=== PATIENT | female | born 1950 | race Caucasian/White ===

== ENCOUNTER → 2016-10-03 | Outpatient (CLI) | payer OTHER | LOC: FIMAGING 15:03 | PROVIDERS: ATTEND Family Medicine | DX: Z12.31 Encounter for screening mammogram for malignant neoplasm of breast (principal) | CPT/HCPCS: G0202 ==

== ENCOUNTER → 2017-02-05 | Outpatient (CLI) | payer OTHER | LOC: FIMAGING 12:52 | PROVIDERS: ATTEND Physician Assistant | DX: M51.26 Other intervertebral disc displacement, lumbar region (principal); M43.16 Spondylolisthesis, lumbar region; M99.73 Connective tissue and disc stenosis of intervertebral foramina of lumbar region; M51.24 Other intervertebral disc displacement, thoracic region; N28.1 Cyst of kidney, acquired ==

== ENCOUNTER → 2018-06-18 | Emergency (ER) | payer OTHER ==
[~2018-06-18] MED LIST: IOHEXOL 300 mgI/ML (OMNIPAQUE) 150 ML BTL IV ONE; KETOROLAC 30 MG/1 ML SDV IVP ONE; NS 1,000 ML IV ONE; TAMSULOSIN HCL 0.4 MG CAP PO ONE
--- NOTE | 2018-06-18 14:37 | EDPHY ---
H & P Stated Complaint: abd pain Time Seen by Provider: 06/18/18 14:36 - Personal History Current Tetanus/Diphtheria Vaccine: Unsure - Medical/Surgical History Hx Asthma: No Hx Chronic Respiratory Disease: No Hx Diabetes: No Hx Cardiac Disease: No Hx Renal Disease: No Hx Cirrhosis: No Hx Alcoholism: No Hx HIV/AIDS: No Hx Splenectomy or Spleen Trauma: No Other PMH: arthritis in right knee and right hip - Social History Smoking Status: Never smoked Constitutional: Initial Vital Signs Temperature (C) 36.4 C 06/18/18 11:40 Heart Rate 65 06/18/18 11:40 Respiratory Rate 16 06/18/18 11:40 Blood Pressure 117/37 L 06/18/18 11:40 O2 Sat (%) 95 06/18/18 11:40 O2 Delivery Mode Room Air Allergies/Adverse Reactions: No Known Allergies Allergy (Unverified 12/10/13 17:04) Home Medications: Medication Instructions Recorded Cyclobenzaprine [Flexeril 10 MG 5 mg PO DAILY PRN 12/13/13 (*)] Herbals/Supplements -Info Only 1 ea PO DAILY 12/13/13 Melatonin [Melatonin 3 MG (*)] 3 mg PO HS 12/13/13 Nature Throid 32.5mg 16.25 mg PO DAILY 12/13/13 Ascorbic Acid [Vitamin C 500 mg 2,000 mg PO DAILY 04/12/14 (*)] Cholecalciferol Vit D3 [Vitamin D3 6,000 units PO DAILY 04/12/14 (*)] [place]-3 Fatty Acids [Fish Oil 1000 1,000 mg PO TID 04/12/14 mg (*)] Vitamin B Complex [B Complex] 1 each PO DAILY 04/12/14 Acetaminophen [Tylenol 325mg (*)] 325 - 650 mg PO Q6 PRN #0 tab 04/29/14 Aspirin EC [Aspirin EC 325 mg (*)] 325 mg PO DAILY #20 tab 04/29/14 HYDROcodone/APAP 10/325 [[place] 1 - 2 tab PO Q6 PRN #60 tab 04/29/14 10/325 (*)] celeCOXIB [Celebrex (*)] 200 mg PO DAILY #20 cap 04/29/14 Hydrocodone/APAP 5/325 [[place] 1 - 2 each PO Q4-6PRN PRN #20 tab 06/18/18 5/325] Tamsulosin HCl [Flomax 0.4 MG (*)] 0.4 mg PO DAILY #10 cap 06/18/18 Medical Decision Making - Diagnostics Imaging Results: Imaging Impressions Abdomen CT 06/18/18 14:51 Impression: 1. 3.7 mm calculus in the distal left ureter with mild left hydroureter and hydronephrosis. 2. Mildly complex exophytic cyst midpole right kidney with slight increase in size from 2014. 3. Other chronic findings as above. Results called and discussed with Vito Lechuga MD, on 06/18/2018, 15:51. Imaging: Discussed imaging studies w/ call center consultant Radiologist, I viewed and interpreted images myself ED Course/Re-evaluation: CHIEF COMPLAINT: Left lower quadrant pain HISTORY OF PRESENT ILLNESS: 68-year-old female who woke up this morning with left lower quadrant pain. She has some nausea without vomiting. She denies any significant radiation of the pain to her flank but she says it does radiate around her hip area. She feels like it starts just left of her umbilicus. She has never had pain like this before. She has no history of kidney stones. She has no significant medical problems except for recent concussion recently. REVIEW OF SYSTEMS: A comprehensive 10 system review of systems is otherwise negative aside from elements mentioned in the history of present illness and medical decision making. PHYSICAL EXAM: HR, BP, O2 Sat, RR. Temp noted General Appearance: Alert, well hydrated, appropriate, and non-toxic appearing. Head: Atraumatic without scalp tenderness or obvious injury Eyes: Pupils equal, round, reactive to light and accommodation, EOMI, no trauma , no injection. Ears: Clear bilaterally, no perforation, normal landmarks Nose: Atraumatic, no rhinorrhea, clear. Throat: There is no erythema or exudates, no lesions, normal tonsils, mucus membranes moist. Neck: Supple, 2+ carotid upstroke, nontender, no lymphadenopathy. Respiratory: No retractions, no distress, no wheezes, and no accessory muscle use. Lungs are clear to auscultation bilaterally. Cardiovascular: Regular rate and rhythm, no murmurs, rubs, or gallops. Bilateral carotid, radial, dorsalis pedis, and posterior tibial pulses intact. Good capillary refill all extremities. Gastrointestinal: Abdomen is soft, tenderness in left lower quadrant, non- distended, no masses, no rebound, no guarding, no peritoneal signs. Musculoskeletal: Normal active ROM of all extremities, atraumatic. Neurological: Alert, appropriate, and interactive. The patient has normal DTRs and non-focal cranial nerves, motor, sensory, and cerebellar exam. Skin: No rashes, good turgor, no nodules on palpation. Past medical history: Recent concussion Past surgical history: Noncontributory Family history: Noncontributory Social history: , retired, does not abuse tobacco drugs or alcohol DIAGNOSTICS/PROCEDURES/CRITICAL CARE TIME: Study: CT scan of the abdomen and pelvis with IV contrast Indication: Left lower quadrant abdominal pain Results: CT scan of the abdomen and pelvis was obtained. The results of the study are 4mmg stone on the Left. The study was read by the radiologist, Dr. Pennington. I viewed the images myself on the PACS system. DIFFERENTIAL DIAGNOSIS: The differential diagnosis for the patient's abdominal pain included but was not limited to ovarian cyst, pelvic inflammatory disease, ovarian torsion, urinary tract infection, ectopic , cholecystitis, and appendicitis. MEDICAL DECISION MAKING: This patient has reproducible left lower quadrant pain without peritoneal signs. She is not systemically ill. While this could certainly be a kidney stone I am also concerned about sigmoid diverticulitis. She does not know if she has diverticulum. She has never had history of kidney stone. Laboratory studies urinalysis and CT scan are pending. Urinalysis shows blood possibly consistent with kidney stone. 1550: I spoke with Dr. Pennington, radiologist, regarding this patient. She has a left-sided kidney stone and will need to follow up with a urologist. 1610: Reassessed patient and discussed laboratory and imaging findings. I have prescribed her Flomax (her first dose was given prior to discharge) and I advised her to follow up with a urologist. Return precautions provided; patient is comfortable with this plan. - Data Points Laboratory Results: Laboratory Results 06/18/18 14:35 06/18/18 14:35 06/18/18 06/18/18 06/18/18 14:56 14:35 14:35 WBC 10.39 10^3/uL H 10^3/uL (3.80-9.50) RBC 5.23 10^6/uL 10^6/uL (4.18-5.33) Hgb 15.6 g/dL g/dL (12.6-16.3) Hct 49.3 % H % (38.0-47.0) MCV 94.3 fL fL (81.5-99.8) MCH 29.8 pg pg (27.9-34.1) MCHC 31.6 g/dL L g/dL (32.4-36.7) RDW 12.8 % % (11.5-15.2) Plt Count 224 10^3/uL 10^3/uL (150-400) MPV 11.0 fL fL (8.7-11.7) Neut % (Auto) 90.4 % H % (39.3-74.2) Lymph % (Auto) 5.4 % L % (15.0-45.0) [place] % (Auto) 3.6 % L % (4.5-13.0) Eos % (Auto) 0.0 % L % (0.6-7.6) Baso % (Auto) 0.2 % L % (0.3-1.7) Nucleat RBC Rel Count 0.0 % % (0.0-0.2) Absolute Neuts (auto) 9.39 10^3/uL H 10^3/uL (1.70-6.50) Absolute Lymphs (auto) 0.56 10^3/uL L 10^3/uL (1.00-3.00) Absolute Monos (auto) 0.37 10^3/uL 10^3/uL (0.30-0.80) Absolute Eos (auto) 0.00 10^3/uL L 10^3/uL (0.03-0.40) Absolute Basos (auto) 0.02 10^3/uL 10^3/uL (0.02-0.10) Absolute Nucleated RBC 0.00 10^3/uL 10^3/uL (0-0.01) Immature Gran % 0.4 % % (0.0-1.1) Immature Gran # 0.04 10^3/uL 10^3/uL (0.00-0.10) RBC/WBC/PLT Morphology TNP Platelet Estimate TNP Sodium 139 mEq/L mEq/L (135-145) Potassium 4.1 mEq/L mEq/L (3.5-5.2) Chloride 104 mEq/L mEq/L (97-110) Carbon Dioxide 25 mEq/l mEq/l (22-31) Anion Gap 10 mEq/L mEq/L (6-14) BUN 21 mg/dL mg/dL (7-23) Creatinine 0.9 mg/dL mg/dL (0.6-1.0) Estimated GFR > 60 Glucose 112 mg/dL H mg/dL (70-100) Calcium 9.6 mg/dL mg/dL (8.5-10.4) Total Bilirubin 0.4 mg/dL mg/dL (0.1-1.4) Conjugated Bilirubin 0.2 mg/dL mg/dL (0.0-0.5) Unconjugated Bilirubin 0.2 mg/dL mg/dL (0.0-1.1) AST 25 IU/L IU/L (14-46) ALT 29 IU/L IU/L (9-52) Alkaline Phosphatase 58 IU/L IU/L (38-126) Total Protein 7.1 g/dL g/dL (6.3-8.2) Albumin 4.5 g/dL g/dL (3.5-5.0) Lipase 142 IU/L IU/L (23-300) Urine Color YELLOW Urine Appearance CLEAR Urine pH 6.0 (5.0-7.5) Ur Specific [place] 1.020 (1.002-1.030) Urine Protein NEGATIVE (NEGATIVE) Urine Ketones 1+ H (NEGATIVE) Urine Blood 1+ H (NEGATIVE) Urine Nitrate NEGATIVE (NEGATIVE) Urine Bilirubin NEGATIVE (NEGATIVE) Urine Urobilinogen NEGATIVE EU EU (0.2-1.0) Ur Leukocyte Esterase NEGATIVE (NEGATIVE) Urine RBC 50-182 /hpf H /hpf (0-3) Urine WBC 1-3 /hpf /hpf (0-3) Ur Epithelial Cells NONE SEEN /lpf /lpf (NONE-1+) Urine Mucus TRACE /lpf /lpf (NONE-1+) Urine Glucose NEGATIVE (NEGATIVE) Medications Given: Discontinued Medications Sodium Chloride (Ns) 1,000 mls @ 0 mls/hr IV EDNOW ONE; Wide Open PRN Reason: Protocol Stop: 06/18/18 14:51 Last Admin: 06/18/18 15:04 Dose: 1,000 mls Ketorolac Tromethamine (Toradol) 30 mg IVP EDNOW ONE Stop: 06/18/18 14:51 Last Admin: 06/18/18 15:12 Dose: 30 mg Tamsulosin HCl (Flomax) 0.4 mg PO EDNOW ONE Stop: 06/18/18 15:53 Last Admin: 06/18/18 16:12 Dose: 0.4 mg Departure - Departure Disposition: Home, Routine, Self-Care Clinical Impression: Kidney stone on left side Condition: Good Instructions: Kidney Stones (ED), How to Strain Your Urine (ED) Additional Instructions: 1. Take Flomax as prescribed. 2. Followup with your urologist within one week. 3. Return to the emergency apartment for fever, severe pain, inability to urinate or other concerns. 4. Strain urine to try and catch the kidney stone and bring this to the urology appointment. Referrals: Leigh Alcala MD [Primary Care Provider] - As per Instructions Cruz Rai MD [Medical Doctor] - As per Instructions Prescriptions: Hydrocodone/APAP 5/325 [[place] 5/325] 1 - 2 each PO Q4-6PRN PRN #20 tab PRN Reason: Pain, Moderate Tamsulosin HCl [Flomax 0.4 MG (*)] 0.4 mg PO DAILY #10 cap
[2018-06-18 15:02] LABS: PLATELET COUNT 224 10^3/uL (150-400)
[2018-06-18 15:42] VITALS: BP 136/64
== END | disposition home or self-care (01) ==
DX: N13.2 Hydronephrosis with renal and ureteral calculous obstruction (principal); N13.4 Hydroureter; N28.1 Cyst of kidney, acquired; E86.9 Volume depletion, unspecified; M17.11 Unilateral primary osteoarthritis, right knee; M16.11 Unilateral primary osteoarthritis, right hip
CPT/HCPCS: 74177; 96361; 96374; 99285; J1885; Q9967